=== PATIENT | female | born 2000 | race Caucasian/White ===

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

== ENCOUNTER 2019-01-09 08:27 | Emergency (ER) | payer SELFPAY ==
[2019-01-09 08:27] VITALS: BP 121/77; PULSE 74; RESP 26; TEMP 36.4; O2SAT 100; BMI 26.4
--- NOTE | 2019-01-09 08:39 | EKG12_ITS ---
Test Reason : EPIGASTRIC PAIN Blood Pressure : / mmHG Vent. Rate : 068 BPM Atrial Rate : 068 BPM P-R Int : 158 ms QRS Dur : 082 ms QT Int : 394 ms P-R-T Axes : 074 077 067 degrees QTc Int : 418 ms Normal sinus rhythm with sinus arrhythmia Normal ECG Confirmed by KARL KELLY, KEREN ([id number]), loan expeditor REGINA MCLAIN ([id number]) on 01/20/2019 9:22:46 A M Referred By: GRACY Confirmed By:GIN BARAJAS MD
--- NOTE | 2019-01-09 08:41 | ED.VISSUMM ---
- ER Visit Summary Date of Service: 01/09/19 Chief Complaint: Abdominal pain History of Present Illness: The patient is a 18 F who states that approximately 1 hour prior to arrival she woke from sleep with a upper abdominal pain nausea and shortness of breath. She describes the pain as a severe cramp. She describes it as starting underneath the bilateral breast extending inferiorly to the epigastric region. She had one episode of emesis on the way to the emergency department. The pain is making it hard for her to make a deep breath. She denies any diarrhea or urinary symptoms. No fevers. She states that yesterday was a normal day she did not do anything out of the ordinary. She denies any potential bad food exposures. States she went to bed around midnight. Physical Examination: Afebrile vital signs are stable Gen: Well-nourished well-developed who appears uncomfortable sitting on the bed holding her upper abdomen Head: Normocephalic atraumatic Eyes: Perrl EOMI ENT: TMs clear no rhinorrhea moist mucous membranes Neck: Supple no lymphadenopathy no JVD nontender CVS: Regular rate rhythm no murmurs normal S1-S2 Respiratory: No distress clear to auscultation bilaterally chest nontender Abdomen: Soft tender palpation in the upper abdomen. Nondistended normal bowel sounds no masses Back: Nontender Extremity: Nontender no edema Skin: Normal color no rash Neuro: alert orientated ?3 CN II-XII intact normal strength sensation Psych: Anxious Test Results: White blood cell count is 12.9. CMP and lipase did not show an obstructive pattern test is negative. Emergency Department Course and Treatment: Repeat examination shows the patient to be feeling significantly better. Performed a bedside ultrasound which demonstrated cholelithiasis. Therefore a formal gallbladder ultrasound was obtained which confirms the above findings. No pericholecystic fluid or gallbladder wall thickening. CBD was within normal limits. Patient will be discharged home to follow-up with her doctor. Should she continue to have episodes like this I would recommend that she see surgery. Today's event may not necessarily be true biliary colic. Her pain was rather generalized. Pain occurred almost 12 hours from her last meal. I will write for the patient have Zofran at home. Patient may return if her symptoms worsen or return. She may follow-up with primary care or with general surgery should she have continued episodes. Impression: 1. Acute abdominal pain 2. Vomiting 3. Cholelithiasis This note was generated with [email or web address] dictation software. It may contain incorrect words, spelling, and punctuation that were not noted in review of the chart prior to signing ED Disposition - Plan for ED Patient: Disposition: Home or Assisted Living Instructions: What Are Gallstones? Prescriptions: Ondansetron [Zofran Odt] 4 mg PO Q6H PRN PRN #10 tab PRN Reason: Nausea Prescription Printed Referrals: Mario Nino MD [STAFF PHYSICIAN] - 1-2 Weeks
[2019-01-09] MEDS: 0.9% Normal Saline 1,000 ML 1000 ML IV (09:00)
[2019-01-09] MEDS: Ondansetron 4 MG/2 ML Vial IV (09:01)
[2019-01-09] MEDS: LORazepam 2 MG/ML Syringe 1 MG IV (09:01)
--- NOTE | 2019-01-09 09:22 | NURSING ---
CHEMISTRIES AND CBCD NEED REDRAWN
[2019-01-09 09:30] LABS: Internal QC Validated? YES +Cl - CLEAR BKGD; Pregnancy, Serum, hCG Quali. NEGATIVE Negative
[2019-01-09 09:37] LABS: Absolute Lymphocyte Count 2.83 X10^3/uL (0.83-4.51); Absolute Neutrophil Count 8.8 X10^3/uL (2.0-7.7); Basophil# 0.05 X10^3/uL; Basophil% 0.4 % (0-1); Eosinophil# 0.17 X10^3/uL; Eosinophils% 1.3 % (0-5); Hematocrit 39.2 % (37-47); Hemoglobin 13.1 g/dL (12.0-15.0); Lymphocyte # 2.83 X10^3/ul (4.0); Mean Corp Hgb Conc 33.4 g/dL (32-36); Mean Corpuscular Hgb 30.9 pg (27.0-32.0); Mean Corpuscular Volume 92.5 fL (81-99); Mean Platelet Vol. 10.4 fl (6.2-12.0); Monocyte# 0.97 X10^3/uL; Monocyte% 7.5 % (0-10); NRBC Flagged by Analyzer 0 % (0-5); Neutrophil # 8.83 X10^3/uL (2.7-7.7); Neutrophil % 68.5 % (47-70); Platelet Count 214 K/mm3 (150-450); RBC Distribution Width CV 12.9 % (11.6-14.6); RBC Distribution Width SD 43.7 fl (35.1-43.9); Red Blood Count 4.24 M/mm3 (4.2-5.4); White Blood Count 12.9 K/mm3 (4.4-11.0)
[2019-01-09 09:50] LABS: AST(SGOT) 26 U/L (15-37); Alanine Aminotransfer ALT/SGPT 21 U/L (13-56); Albumin, Serum 3.2 g/dL (3.2-5.0); Alkaline Phosphatase 67 U/L (45-117); Anion Gap 5 (5-15); BUN 11 mg/dL (7-18); BUN/Creat Ratio 13.7 RATIO (10-20); Bilirubin, Direct 0.07 mg/dL (0.00-0.30); Chloride 111 mmol/L (98-107); EST Glomerular Filtration Rate 96 mL/min (>60); Est Glom Filt Rate - Afr Amer 116 mL/min (>60); Estimated Creatinine Clearance 80.57 ml/min; Globulin 2.8 g/dL (2.2-4.2); Glucose 96 mg/dL (74-106); Lipase 84 U/L (73-393); Potassium 3.8 mmol/L (3.5-5.1); Sodium Level 141 mmol/L (136-145)
--- NOTE | 2019-01-09 10:24 | US_ITS ---
STUDY: ABDOMINAL ULTRASOUND - RIGHT UPPER QUADRANT REASON FOR VISIT: Female, 18 years old abdominal pain for one day. TECHNIQUE: Ultrasound evaluation of the right upper quadrant was performed with real-time and static madison-scale imaging. TECHNICAL QUALITY: Adequate. COMPARISON: None. FINDINGS: Liver: The liver measures 14.5 cm. There is normal echogenicity of the liver. The bile ducts are within normal limits. There is hepatic color flow. The direction of portal flow is hepatopetal. There is no demonstrated mass lesion. Gallbladder: Normal distended gallbladder. The gallbladder wall measures 2.8 mm. There is a positive sonographic Baez's sign. There is no pericholecystic fluid. There are multiple small gallstones. Common Bile Duct (C.B.D.): The common bile duct measures 2.7 mm. Pancreas: Normal size of the head, body and tail of the pancreas. There is normal echogenicity of the pancreas. There is no demonstrated pancreatic mass or cyst. Right Kidney: Normal size of the right kidney. The right kidney measures 10 x 5.2 x 3.9 cm. Normal renal cortex. The right cortex measures 1.3 cm. There is no demonstrated renal mass or cyst. There is no right hydronephrosis. US/Abdomen Limited IMPRESSION: Multiple small gallstones. Electronically Signed: Tramaine Ramirez MD at 11:30 EDT Tel , Service support ,
[2019-01-09 11:26] VITALS: RESP 18
== END 2019-01-09 11:33 | disposition home or self-care (01) ==
PROVIDERS: Emergency Provider Emergency Medicine
DX: K80.20 Calculus of gallbladder without cholecystitis without obstruction (principal); R10.84 Generalized abdominal pain; R11.10 Vomiting, unspecified; Z72.0 Tobacco use
CPT/HCPCS: 76705; 80048; 80076; 83690; 84703; 85025; 93005; 96361; 96374; 96375; 99284; J7030; A4216; J2405

== ENCOUNTER 2023-09-12 15:00 | Inpatient (IN) | payer MEDICAID, SELFPAY ==
[2023-09-12] VITALS (17 sets, daily range): BP systolic 69–121; BP diastolic 38–75; PULSE 62–116; RESP 12–16; TEMP 36.4–36.9; O2SAT 86–100; BMI 28.3
[2023-09-12 16:22] LABS: Absolute Neutrophil Count 11.5 X10^3/uL (2.0-7.7); Basophil# 0.07 X10^3/uL; Basophil% 0.4 % (0-1); Eosinophil# 0.27 X10^3/uL; Eosinophils% 1.6 % (0-5); Hematocrit 35.1 % (37-47); Hemoglobin 11.6 g/dL (12.0-15.0); Lymphocyte % 22.5 % (19-41); Mean Corpuscular Volume 90.7 fL (81-99); Mean Platelet Vol. 11.4 fl (6.2-12.0); Monocyte# 1.17 X10^3/uL; Monocyte% 6.9 % (0-10); NRBC Flagged by Analyzer 0 % (0-5); Neutrophil # 11.51 X10^3/uL (2.7-7.7); Neutrophil % 68.1 % (47-70); Platelet Count 262 K/mm3 (150-450); RBC Distribution Width CV 13.3 % (11.6-14.6); RBC Distribution Width SD 43.8 fl (35.1-43.9); Red Blood Count 3.87 M/mm3 (4.2-5.4); White Blood Count 16.9 K/mm3 (4.4-11.0)
[2023-09-12] MEDS: Cefazolin 2 GM in 0.9% Normal Saline (100mL Bag) 100 ML IV (16:30)
[2023-09-12 17:05] LABS: Syphilis Antibodies Non-reactive
--- NOTE | 2023-09-12 17:10 | EX.PCM.OBRPT ---
Details Operative Information Date of Procedure: 09/12/23 Pre-Operative Diagnosis: 38 weeks gestation, IUGR, Category 2 FHR tracing Post-Operative Diagnosis: Same , live female infant Indications Narrative: pt sent from office for Category 2 FHR tracing, upon arrival was having variable decelerations then Prolonged deceleration down to 60bpm x 4min HANNY called. upon my arrival pt was in OR at this time decision for primary cs due to Category 2 FHR remote from delivery. Classification: JEAN PAUL Procedure Type: low transverse presbyterian clergy #1: Perfecto Borden Type of Anesthesia: Spinal Antibiotic Given: Ancef 2 grams IV x1 Drain: Chawla to straight drain Estimated Blood Loss: 600 Fluids Replaced: 1000 Procedure Start Time: 16:46 Procedure Stop Time: 17:11 Time of Delivery: 16:47 Findings Description of Procedure: Patient was in operating room upon my arrival, decision to proceed with primary cs- she was given spinal anesthesia. She was then placed in the supine position. She was prepped and draped in the normal sterile fashion. Anesthesia was found to be adequate. At this time a Pfannenstiel skin incision was made with a knife was carried down to the underlying layer of the fascia. The fascial incision was then extended laterally using blunt traction. attention was then turned to the superior aspect of the fascial edge was grasped with 2 straight [place] clamps tented up and the rectus muscle dissected off bluntly. rectus were seperated in midline bluntly and peritoneum entered bluntly. uterine incision made in Low transverse fashion. The uterus was then entered bluntly gentle opposing traction was placed to extend this incision. Membranes were ruptured clear. 's head was brought to the uterine incision was delivered atraumatically. Two loose nuchals- reduced. Infant vigorous. delayed cord clamping performed. Cord was clamped and cut infant was handed to the waiting nursery team. The Placenta was removed from the uterus. The uterus was then removed from the abdominal cavity. The uterus was cleared of all clots and debris using a lap. At this time the uterine incision was reapproximated using #1 Vicryl in a running locked fashion. Hemostasis was appreciated. Posterior cul-de-sac was then cleared of all clots and debris. Uterus was placed back in the abdominal cavity. Gutters were cleared of all clots and debris. Uterine incision was reevaluated and noted to be of excellent hemostasis. At this time the peritoneum was grasped with Kellys reapproximated using #2 Vicryl suture in a running fashion. Fascia was then reapproximated using #1 Vicryl in a running fashion. Subcu layer was irrigated and reapproximated with #2 0 plain gut suture in an interrupted fashion. Subcu layer was closed using 4-0 Monocryl in a subcu fashion. Dry sterile dressing was applied. Instrument lap needle count correct ?2. Anticipated normal postoperative course. Presentation: Positive for Vertex Amniotic Membrane Rupture Type: Artificial Amniotic Fluid Description: Clear Placental Delivery Description: Expressed Placenta Disposition: Routine to Lab Specimen(s) Sent to Pathology: placenta Cord Vessel Description: 3 Vessels Cord Entanglement: Around neck x 2, loose Nuchal Cord Compression: With compression Cord Gases: ABG and VBG Infant A Gender: Female (1 minute): 8 (5 minute): 9 Delayed Cord Clamping: Yes Complications Risks of Surgery Discussed w/Patient: Bleeding, Anesthesia Risks, Infection and Injury to surrounding structure(s) including bowel and bladder Complications: none
--- NOTE | 2023-09-12 17:17 | PLAC_PTH ---
PATIENT: RANDY MOORE LOC: [facility] U#:[id number] AGE/SX: 23/F ROOM: [facility] RE09/12/[address]: Dr. Lu Naylor, MDDOB: 2000 BED: 1 DIS: 09/14/2023 SPEC #: [id number] RECD: 09/12/23 18:31 STATUS: BETTE DORCAS #: [id number] TOM: 09/12/23 17:[address]: Lu Naylor DEPT: SURGICAL PATHOLOGY RECD BY: Belkys Jaquez ENTERED: 09/15/23 11:33 SP TYPE: PLACENTA OTHR DR: HORTENCIA Doherty No Primary Care Phys Tissues: Placenta, NOS Procedures: Surgery Specimen Level V HEADER OPERATION: section PRE-OP DIAGNOSIS: IUGR TISSUE SUBMITTED: Placenta MICROSCOPIC DIAGNOSIS Bro placenta (332 gm): Umbilical cord - Bivascular with no evidence of inflammation. Placental membranes - Present membranes, no pathologic change. Placental disc - Interparanchymal organizing hemmorhage, Tenny-Richard change and mild intravillous congestion. AM: 09/16/2023 MICROSCOPIC DESCRIPTION Slides are reviewed. GROSS DESCRIPTION SPECIMEN: PLACENTA / CLINICAL INFORMATION: A. Weight: 2.28 kg B. Gestational Age:38 weeks C. Sex: Female PLACENTAL WEIGHT (POST FIXATION): 332 gm PLACENTAL DIMENSIONS: 17.0 x 14.0 x 2.0cm PLACENTAL SHAPE: Usual ovoid PLACENTAL WEIGHT FOR GESTATIONAL AGE: Within 10-99th percentile (over/under percentile) MEMBRANES - Present A. Insertion: Marginal B. Site of rupture from edge: 5.0cm from edge of placental disc C. Color of membrane: Guevara-madison D. Abnormalities: None UMBILICAL CORD - Present A. Color: Guevara-madison B. Insertion: Paracentral C. Length: 52.0 cm D. Diameter: 0.7cm E. Number of vessels: Two, Umbilical cord show 3 blood vessels at the placental end, rest of the umbilical cord show 2 blood vessels. F. Abnormalities: None PLACENTAL DISC - Present A. Color of surface: Guevara-madison B. surface abnormalities: None C. Maternal cotyledons: Intact with minimal tears D. Attached retro placental clot: No clot E. Cut surface: Dark red and spongy F. Lesions: Sections reveal a guevara indurated area measuring 1.0cm in greatest dimension G. Separate clot: Multiple blood clots are noted weighing 26gm and measuring 8.0 x 8.0 x 2.5cm. SECTIONS SUBMITTED: Dr. Bell (6 cassettes) - remove if Dr. Coburn 1. Membrane roll 2. Cord, maternal end 3. Cord, end 4. Placental disc, and maternal surfaces, lesion 5. Placental disc, and maternal surfaces 6. Placental disc, and maternal surfaces SJ/mr 09/15/23 TC:5 CPT: 04056
--- NOTE | 2023-09-12 17:23 | PCM.HP.OB ---
HPI - General General Date of Admission: 09/12/23 HPI Narrative RANDY MOORE, is a 23 F @ 38 weeks who presents from office with decels on NST for IOL due to IUGR. planning for ng and pitocin however once placed on monitor pat was having some variable decelerations and then had prolonged decel down to 60bpm and HANNY was called. Upon my arrival patient was already in OR, FHR was back up but due to persistent category 2 and remote from delivery decision for primary cs at this time. Pt in agreement. PFSH PFS Medical History (Updated 09/12/23 @ 17:[address] Lu Naylor MD) Encounter for insertion of mirena IUD Home Medications ?Medication ?Instructions ?Recorded ?Last Taken ?Type ondansetron 4 mg disintegrating 4 mg PO Q6H PRN PRN Nausea #10 tabs 01/09/19 Unknown Rx tablet Allergy/AdvReac Type Severity Reaction Status Date / Time No Known Allergies Allergy Verified 01/14/19 14:57 Family History Mother Hypertension CAD (coronary artery disease) Lupus Social History (Updated 01/16/19 @ 08:[address] Mario Nino MD) Smoking Status: Current every day smoker alcohol intake: current Vital Signs Vital Signs Vital Signs: 09/12/23 15:37 09/12/23 15:37 09/12/23 15:38 Temperature Temperature Source Pulse Rate 99 Respiratory Rate Blood Pressure 111/56 L BP Systolic 111 BP Diastolic 56 Pulse Ox 99 09/12/23 15:38 09/12/23 15:42 09/12/23 15:42 Temperature Temperature Source Pulse Rate 93 116 H Respiratory Rate Blood Pressure BP Systolic BP Diastolic Pulse Ox 98 09/12/23 16:05 09/12/23 16:05 09/12/23 16:05 Temperature 97.5 F L Temperature Source Temporal Pulse Rate Respiratory Rate 16 Blood Pressure BP Systolic BP Diastolic Pulse Ox 09/12/23 16:19 09/12/23 16:19 Temperature Temperature Source Pulse Rate 91 Respiratory Rate Blood Pressure BP Systolic BP Diastolic Pulse Ox 100 Labs Labs Labs: Blood Type O POSITIVE Antibody Screen NEGATIVE Hct 35.1 % (37-47) L Hgb 11.6 g/dL (12.0-15.0) L Syphilis Total Ab Non-reactive Hepatitis C Ab (EIA) <0.1 s/co ratio (0.0-0.9) Assessment & Plan (1) IUGR (intrauterine growth restriction) affecting care of mother: (2) heart rate decelerations affecting management of mother: (3) 38 weeks gestation of : PLAN: Plan @ 38 weeks gestation wtih IUGR and Category 2 FHR 1) admit to L&D 2) Primary cs for IUGR, Persistant Cat 2 tracing remote from delivery
[2023-09-12] MEDS: Lactated Ringers 1,000 ML 100 ML IV (18:06)
[2023-09-12] MEDS: Oxytocin 15 Units/NS 250ml 15 UNITS/250 ML IV.SOLN 83 UNITS IV (18:06)
[2023-09-12] MEDS: Acetaminophen 500 MG Tablet 1000 MG PO (18:07)
[2023-09-12] MEDS: Ketorolac 30 MG/ML Syringe IV (18:07)
[2023-09-12 20:22] LABS: Pathology Specimen OB SEE PATHOLOGY REPORT
--- NOTE | 2023-09-12 22:44 | NURSING ---
This RN received report from Yanni NEVES. Yanni NEVES reported to this RN that she got up with patient and patient walked around the halls and in room.
--- NOTE | 2023-09-12 22:54 | NURSING ---
This RN placed call to Omid at [phone] and stated that the patient did not get duramorph orders put in the system. Yanni RN gave this RN report at [phone] and stated patient was a 12 hour duramorph but orders for the duramorph were never put in. Omid stated that he will put in the duramorph orders at this time.
[2023-09-13] VITALS (7 sets, daily range): BP systolic 97–118; BP diastolic 46–75; PULSE 67–85; RESP 16–17; TEMP 36.4–36.8; O2SAT 98–100
[2023-09-13] MEDS: Acetaminophen 500 MG Tablet 1000 MG PO ×4 (00:18→17:54)
[2023-09-13] MEDS: Ketorolac 30 MG/ML Syringe IV (00:18)
--- NOTE | 2023-09-13 02:08 | NURSING ---
This RN saline locked patient due to patient refusal of IV fluids.Patient also refusing IV in right forearm at this time. Patient is very fidgety and anxious and states she needs to go outside and smoke and she wants the IV taken out. This RN explained to patient that she has not voided yet since catheter being out and if more fluids are needed then we will have to reinsert an IV access line. Patient and significant other verbalized understanding and still refuse. This RN explained that patient has a lab draw at 0600 for a CBC and if hemoglobin levels are decreased to an inappropriate level another IV access line will have to be inserted. The patient and significant other verbalized understanding and still refuse IV at this time.
[2023-09-13 05:53] LABS: Hematocrit 30.2 % (37-47); Hemoglobin 10.1 g/dL (12.0-15.0); Mean Corp Hgb Conc 33.4 g/dL (32-36); Mean Corpuscular Hgb 30.6 pg (27.0-32.0); Mean Corpuscular Volume 91.5 fL (81-99); Mean Platelet Vol. 11.1 fl (6.2-12.0); Platelet Count 216 K/mm3 (150-450); RBC Distribution Width CV 13.2 % (11.6-14.6); RBC Distribution Width SD 43.8 fl (35.1-43.9); White Blood Count 18.6 K/mm3 (4.4-11.0)
[2023-09-13] MEDS: Ibuprofen 600 MG Tablet PO ×3 (06:38→17:54)
--- NOTE | 2023-09-13 06:52 | NURSING ---
[facility] from [facility]adol per patient request. This RN explained that patient requested IV be removed so she can smoke outside and refused IV fluids and IV pain medication as well. See previous note. Simi states that we can switch to oral motrin at this time in place of the IV toradol.
--- NOTE | 2023-09-13 09:29 | PCM.PN.CNM ---
Subjective Subjective Patient seen at bedside. Has ambulated and voided without difficulty. Requested IV be removed to be able to go outside to smoke. Counseled on pain control with IV Toradol vs .PO Motrin/Tylenol. Patient voices understanding and demanding IV be removed. Objective Data Objective Data Vital Signs: Vital Signs Temp Pulse Resp BP Pulse Ox O2 Del Method 98.0 F 77 17 106/62 100 Room Air 09/13/23 08:05 09/13/23 08:05 09/13/23 08:05 09/13/23 08:05 09/13/23 08:05 09/13/23 08:05 Oxygen Delivery Method Room Air Weight: 145 lb 6 oz Body Mass Index (BMI) 28.3 Intake & Output: Intake and Output for Last 24 Hours 09/11/23 09/12/23 09/13/23 23:59 23:59 23:59 Intake Total 361.67 / 361.67 361.67 / 361.67 Output Total 1050 / 1050 300 / 300 Balance -688.33 / -688.33 61.67 / 61.67 Lab / Micro Data 09/13/23 05:45 Labs: Laboratory Results - last 24 hr 09/12/23 16:00: WBC 16.9 H, RBC 3.87 L, Hgb 11.6 L, Hct 35.1 L, MCV 90.7, MCH 30.0, MCHC 33.0, RDW Std Deviation 43.8, RDW Coeff of Trina 13.3, Plt Count 262, MPV 11.4, Immature Gran % (Auto) 0.500, Neut % (Auto) 68.1, Lymph % (Auto) 22.5, Banner % (Auto) 6.9, Eos % (Auto) 1.6, Baso % (Auto) 0.4, Absolute Neuts (auto) 11.5 H, Absolute Lymphs (auto) 3.80, Nucleated RBC % 0, Syphilis Total Ab Non-reactive, Blood Type O POSITIVE, Antibody Screen NEGATIVE 09/13/23 05:45: WBC 18.6 H, RBC 3.30 L, Hgb 10.1 L, Hct 30.2 L, MCV 91.5, MCH 30.6, MCHC 33.4, RDW Std Deviation 43.8, RDW Coeff of Trina 13.2, Plt Count 216, MPV 11.1 ROS Eyes Eyes: Denies blurry vision, change in vision or spots in vision ENT HEENT: Denies dizziness or headache(s) Cardiovascular Cardiovascular: Denies abdominal pain, chest pain or dyspnea Respiratory/Chest Respiratory/Chest: Denies cough, dyspnea, shortness of breath at rest or shortness of breath with exertion Gastrointestinal Gastrointestinal: Denies abdominal pain, diarrhea or vomiting Genitourinary Genitourinary: Denies change in urinary stream, difficulty urinating or dysuria Musculoskeletal Musculoskeletal: Reports none Integumentary Integumentary: Denies rash Neurologic Neurologic: Denies dizziness, headache(s), memory loss or weakness Physical Exam Narrative Dressing with some areas of drainage marked. Const alert and no apparent distress General Appearance: cooperative and comfortable Exam Limitations: no limitations HEENT normocephalic Eyes General Eye: normal appearance of both eyes Neck full ROM General: normal visual inspection Chest Chest: symmetrical chest wall rise Resp normal respiratory effort and normal air movement Effort and Inspection: symmetric chest movement Auscultation: clear to auscultation bilaterally Cardio regular rate and regular rhythm GI normal to inspection, nondistended, normoactive bowel sounds Back/Spine normal ROM Extremity full ROM and no calf tenderness General Extremity: normal exam except as noted Skin no rashes or lesions noted Neuro CN's II-XII intact bilaterally Psych mental status grossly normal Assessment & Plan (1) Status post primary low transverse section: (2) Smoker: (3) IUGR (intrauterine growth restriction) affecting care of mother: (4) Care and examination of lactating mother: PLAN: Plan POD 1 Primary C/S Pain control Ambulate Breast feeding support
[2023-09-13] MEDS: Senna/Docusate Sodium 1 Tablet PO (10:02)
--- NOTE | 2023-09-13 16:10 | CASEMGMT ---
Social Work Assessment Labor and Delivery Unit Patient Address: [address] , [place] [address] Phone number: [phone] Date of Referral: 09.12.2023 Time of Referral: 1821 Referred By: Dr. Carrillo Date of Intervention: 09.13.2023 Time of Intervention: 1610 Reason for Referral: Late PNC, maternal THC use; *SDOH trigger for housing - see attached intervention for details* History obtained from: Medical records and mother of baby (MOB) Jose Singer; patient's mother Camryn present for part of conversation Household composition: MOB reports to live with her mother Camryn, stepfather, 16-year-old sister, and the MOB's significant other/father of baby (FOB). infant will reside in his home. MOB denies any housing concerns, or safety concerns with living situation. Patient's parent/guardian status: FREDDY is a 23-year-old single female, involved with the FOB Jayden Landry (10/07/1994) for the last 7 years. During private conversation MOB denied any safety concerns or history of violence in this relationship. infant is the first child for MOB and FOB together. is to be named Cristina Singer (09/12/2023). FOB does have a 5-year-old son living out of state from a prior relationship. Medical History: FREDDY is 1, para 0 now 1 after delivering Cristina. care poor noting 2 care visits, 1 at 23 weeks and 1 at 28 weeks. Did reportedly have 1 visit at a care center. FREDDY moved from [place] to [place] midpregnancy. MOB attributes the lack of care due to fear of medical file clerk and experiences that FREDDY had while living in [place]. was delivered via emergent at 30 weeks gestation. Small for gestational age. Noted IUGR in the medical records. weighed 5 pounds 7 ounces at . Apgars 8 and 9 at 1 and 5 minutes of life respectively. Educational Status: High school. MOB denies any concerns with reading, writing, or learning comprehension. 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 FOB works at the same restaurant as a gravity meter observer. No reported concerns with financial status. MOB reports she and the FOB just purchased a home. Infant Supplies: MOB reports to have necessary supplies including a car seat, pack and play for sleeping, clothing, diapers and wipes. Childcare/Caregiver(s): MOB will be the primary caregiver along with FOB and MOB's mom can help 2. Transportation: MOB denies any concerns with reliable transportation. Denies that transportation has prohibited MOB from getting to appointments in the last year. Programs/Agencies Involved: FREDDY has food and medical benefits throughout the family services. Plans to apply for WIC and agrees to a help me grow referral. Children Services/Legal Issues: None reported. Behavioral Health Issues: Mental Health History: MOB reports history of depression and anxiety. MOB admits to history of suicide attempt at the age of 11 with hospitalization at [facility]. MOB reports as a teenager did have history of self-injury and a suicide attempt was via attempt at smothering with a pillow over the MOB's face. History of counseling. No current treatment. MOB denies any suicidal thoughts, planning, intent or attempts since that 1 episode at the age of 11. Substance Use History: Medical record indicates MOB has been using marijuana for the last 5 years and that last usage was the morning of delivery. MOB reports to this adjusto writer operator use during was to assist with nausea and appetite. MOB reports would use once a day at lunchtime. MOB reports with ingested THC via vaping. MOB reports has thought about getting a medical card but has never done this. MOB denies any alcohol usage during , prescription pill abuse, heroin, meth, or cocaine. MOB is a daily tobacco smoker going from 2 packs/day down to 1 pack/day during . Family History: FREDDY's mother experienced depression after the of one of the MOB siblings, where that sibling 12 hours after . MOB reports some mother depression anxiety within the family. No specific reports of any bipolar disorder. The FOB does reportedly have a history of PTSD from the . Drug Screens: No maternal drug screens noted. 's urine toxicology screen positive for marijuana on 09/12/2023. Meconium drug screen is pending. Family/Social Stressors: Moved from [place] to [place] during the . Lack of care, due to MOB's fear of medical file clerk. Emergent brought up emotions and fears associated with the of MOB sibling when the sibling was an infant. MOB does report appreciation of staff moving so quickly to take care of of the MOB and the safely. MOB's grandfather recently , and MOB's grandmother has reportedly been emotionally and verbally rude to others so MOB has been keeping her distance. Support Systems: FOB, MOB's mother, and family. Depression/Shaken Baby/Safe Sleeping: Reviewed mood and anxiety disorders, risk factors, and reinforced the importance of seeking out help and support should symptoms arise. MOB's mother was also present for this part of discussion and asked good questions on how to support the MOB. Reviewed that fathers are also at risk for mood and anxiety disorders, and importance of fathers seeking support. Briefly reviewed safe sleeping and shaken baby prevention. Written material provided on all 3 topics for home-going. ASSESSMENT: Met with MOB and MOB's mother in room, introducing to social work role. Confirmed demographics, which need to be changed in the EMR; this adjusto writer operator will update the EMR. MOB's mother presented as supportive to MOB, as evidenced by MOB's mother expressing concern MOB and asking questions on how can be supportive of MOB. MOB reports to have stable housing and no concerns with housing, no concerns with basic needs such as transportation food or utilities. Reports to have all necessary supplies to care for the baby. Much discussion about mood and anxiety disorders, and need to seek out help and support should symptoms arise. MOB agreeable. This adjusto writer operator observed MOB to care for the , attending to the infant appropriately and appearing to patel with the infant, touching the 's face and speaking to the infant gently. This adjusto writer operator explored MOB's intent to have the follow-up with the mechanical engineering lecturer. MOB reports intent to follow-up for both self and after discharge and reports this episode of medical care has increased MOB's trust in the medical system. Much emotional support and encouragement provided to MOB this date. This adjusto writer operator did address substance use during and exposure in utero. Discussed the JOHN Act, and mandates to make referral to children services. Discussed likely follow-up at home. Encouraged MOB to continue cooperating and work with children services should they come out to visit. MOB agreeable. Safe Plan of Care for infant related to substance use: MOB reports any future use would be outside, and any THC would be locked up in a locked box outside initiated. MOB reports during did make the FOB away from MOB when using, as FOB would use flower in the MOB uses via vaping. Educated MOB of recommendation to refrain from providing breast milk if used discontinue in the future. MOB expressed understanding. PLAN: Resources provided for [facility] including how to contact WIC. Will make a help me grow referral. Will be making a children services to [facility]. MOB and infant to home when ready for discharge. Social work to follow -SOTO Levin, REI *This note was generated with [employer] software. It may contain incorrect words, spelling, and punctuation that were not noted in review of the chart prior to signing*
[2023-09-13] MEDS: oxyCODONE 5 MG Tablet PO (17:13)
[2023-09-14] MEDS: Acetaminophen 500 MG Tablet 1000 MG PO ×3 (00:08→13:54)
[2023-09-14] MEDS: Ibuprofen 600 MG Tablet PO ×3 (00:08→13:53)
[2023-09-14] MEDS: oxyCODONE 5 MG Tablet PO (01:24)
[2023-09-14 01:26] VITALS: BP 113/54; PULSE 75; RESP 16; TEMP 36.7; O2SAT 99
[2023-09-14 09:54] VITALS: BP 108/67; PULSE 77; RESP 16; TEMP 36.6; O2SAT 100
--- NOTE | 2023-09-14 11:08 | PCM.DC.SUM ---
Providers Date of Admission: 09/12/23 Primary Care Physician: No Primary Care Phys Reason For Visit: PRIMARY Diagnosis Discharge Diagnosis (1) Status post primary low transverse section: Status: Acute Code(s): Z98.891 - History of uterine scar from previous surgery (2) Smoker: Status: Acute Code(s): F17.200 - Nicotine dependence, unspecified, uncomplicated (3) Care and examination of lactating mother: Status: Acute Code(s): Z39.1 - Encounter for care and examination of lactating mother Plan POD 2 Primary C/S Pain controlled Ambulating and voiding without difficulty Desires discharge home with follow up in office Medications at Discharge Home Medications [id number] 1 mg tablet 1 tab PO DAILY 09/12/23 acetaminophen 500 mg tablet 1,000 mg (2 x 500 mg) PO Q6H #0 tabs 09/14/23 ibuprofen 600 mg tablet 600 mg PO Q6H #0 tabs 09/14/23 sennosides 8.6 mg-docusate sodium 50 mg tablet (Stool Softener-Stimulant Laxative) 1 - 2 tab PO DAILY #0 tabs 09/14/23 Hospital Course Operations section Procedures None Summary of Care Provided Minutes Spent on Discharge: 15 Hospital Course: Patient had primary section. Hospital course was uneventful. Physical Exam Narrative Dressing is dry and intact Const alert and no apparent distress General Appearance: cooperative and comfortable Exam Limitations: no limitations HEENT normocephalic Eyes General Eye: normal appearance of both eyes Neck full ROM General: normal visual inspection Chest Chest: symmetrical chest wall rise Resp normal respiratory effort and normal air movement Effort and Inspection: symmetric chest movement Auscultation: clear to auscultation bilaterally Cardio regular rate and regular rhythm GI normal to inspection, nondistended, normoactive bowel sounds Back/Spine normal ROM Extremity full ROM and no calf tenderness General Extremity: normal exam except as noted Skin no rashes or lesions noted Neuro CN's II-XII intact bilaterally Psych mental status grossly normal Weight / BMI Weight Weight: 145 lb 6 oz Body Mass Index (BMI) 28.3 ABG / Lab / Microbiology Data 09/13/23 05:45 D/C Instructions Discharge Diet: No restrictions Discharge Activity: May Drive (2 weeks) and May Shower May resume sexual activity in: 6-8 weeks Weight Bearing Status: Weight bearing as tolerated Call your doctor if your incision/area has: Continuous Slow Oozing, Sudden Increased Bleeding, Increased Pain/ Swelling, Increased Redness, Foul Smelling Discharge and Swelling at the incision site Call your doctor if you observe: Fever of 101 or Higher, Numbness or Tingling, Using more than 1 pad per hour, Shortness of breath, Dizziness, Swelling in the ankles, Chest pain, Calf discomfort and Uncontrolled pain Suture Line Care: Avoid Pulling/Pushing Remove Dressing in: 5 days When: 1 week for incision check Meaningful Use Info Meaningful Use Meaningful Use Diagnoses (Choose all that apply): None applicable Ischemic Stroke Statin Dosing Therapy Reference: STATIN DOSE THERAPY REFERENCE: * Patients > 75 years receive moderate or high dose statin therapy. * Patients 75 years or YOUNGER should receive HIGH intensity statin dose unless contraindicated. You will be required to document reason for non-treatment if statin daily dose does not meet guidelines. HIGH DOSE STATIN THERAPY DAILY Atorvastatin > than or = to 40 mg Rosuvastatin > than or = to 20 mg Amlodipine + Atorvastatin > than or = to 2.5/40 mg Ezetimibe + Simvastatin 10/80 mg Simvastatin 80mg Discharge Plan Admission Admit Date/Time: 09/12/23 15:00 Primary Reason for Your Visit: Labor and Delivery Attending Provider: Lu Naylor Primary Care Provider: Care Physician,Rosa Primary Discharge Orders/Prescriptions Prescriptions: New sennosides-docusate sodium [Stool Softener-Stimulant Laxat] 8.6-50 mg Tablet 1 - 2 tab PO DAILY Qty: 0 0RF acetaminophen 500 mg Tablet 1,000 mg PO Q6H Qty: 0 0RF ibuprofen 600 mg Tablet 600 mg PO Q6H Qty: 0 0RF No Action [id number] 1 mg tablet 1 tab PO DAILY Referrals / Follow Up: Care Physician,No Primary [Primary Care Provider] - Disposition Disposition (needs filled in before D/C Order can be placed): Home, Self Care
[2023-09-14] MEDS: Senna/Docusate Sodium 1 Tablet PO (13:55)
[2023-09-14 14:00] VITALS: BP 117/68; PULSE 76; RESP 16; TEMP 36.8; O2SAT 99
--- NOTE | 2023-09-15 10:25 | CASEMGMT ---
Social Work Updated demographic information in the's mother of baby (MOB) in infant's charts. Completed help me grow referral via secure online referral system. Called [facility] services at [phone] and spoke with Estela in the intake department. Brief maternal and history is provided. 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 Updated to late and limited care. Updated that when this medical technical writer met with the MOB, he was attentive to the baby seemed to be doing good with care. Estela asked to be called with meconium drug screen results. Plan: MOB and were discharged on 09/14/2023. Will monitor for meconium drug screen results. -JOSSE Levin, MEDICAL CODING MANAGER *This note was generated with [employer] dictation software. It may contain incorrect words, spelling, and punctuation that were not noted in review of the chart prior to signing*
== END 2023-09-14 14:40 | disposition home or self-care (01) | DRG 540 ==
PROVIDERS: Admitting Provider Advanced Practice Midwife; Referring Provider Advanced Practice Midwife; Visit Provider Obstetrics & Gynecology
DX: O76 Abnormality in fetal heart rate and rhythm complicating labor and delivery (principal); O36.5930 Maternal care for other known or suspected poor fetal growth, third trimester, not applicable or unspecified; F17.200 Nicotine dependence, unspecified, uncomplicated; O99.334 Smoking (tobacco) complicating childbirth; O69.81X0 Labor and delivery complicated by cord around neck, without compression, not applicable or unspecified; Z3A.38 38 weeks gestation of pregnancy; Z37.0 Single live birth
CPT/HCPCS: 59025; 59050; 85025; 85027; 86780; 86850; 86900; 86901; 88307; 99221; J7120; G0378; J2405